=== PATIENT | female | born 1950 | race Caucasian/White ===

== ENCOUNTER → 2023-11-23 08:14 | Outpatient (REF) | payer MEDICARE, SELFPAY ==
[2023-11-23 09:09] LABS: % Basophils 0.9 % (0-2); % Eosinophils 4.1 % (0-6); % Immature Granulocytes 0.6 % (0-0.5); % Lymphocytes 28.4 % (20.5-51.1); % Monocytes 7.2 % (1.7-9.3); % Neutrophils 58.8 % (42.2-75.2); Absolute Basophils 0.1 10^3/uL (0-0.2); Absolute Eosinophils 0.4 10^3/uL (0-0.7); Absolute Immature Granulocytes 0.1 10^3/uL (0-0.05); Absolute Lymphocytes 2.5 10^3/uL (1.2-3.4); Absolute Monocytes 0.6 10^3/uL (0.1-0.6); Absolute Neutrophils 5.1 10^3/uL (1.4-6.5); Hematocrit 39.4 % (37.0-47.0); Hemoglobin 13.5 g/dL (12.0-16.0); Mean Corp Hgb Conc. 34.3 g/dL (33.0-37.0); Mean Corpuscular Hgb 30.7 pg (27.0-31.0); Mean Corpuscular Volume 89.5 fL (81.0-99.0); Mean Platelet Volume 9.4 fL (7.4-10.4); Nucleated Red Blood Cells % 0 %; Platelet Count 267 10^3/uL (130-400); Red Cell Dist. Width 14.3 % (11.5-14.5); White Blood Cell Count 8.6 10^3/uL (4.8-10.8)
[2023-11-23 09:29] LABS: Glycohemoglobin (HgbA1c) 5.8 % (4.0-5.6)
[2023-11-23 10:15] LABS: ALT (SGPT) 25 U/L (0-35); AST (SGOT) 42 U/L (14-36); Albumin 4.3 g/dl (3.5-5.0); Alkaline Phosphatase 44 U/L (38-126); Blood Urea Nitrogen 15 mg/dl (7-17); Calcium 9.4 mg/dl (8.4-10.2); Carbon Dioxide 23 mmol/L (22-30); Chloride 106 mmol/L (98-107); Glucose 84 mg/dl (70-99); HDL Cholesterol 60 mg/dl; LDL Cholesterol, Calculated 69 mg/dl; Potassium 3.8 mmol/L (3.5-5.1); Sodium 137 mmol/L (135-145); Total Bilirubin 0.8 mg/dl (0.2-1.3); Total Cholesterol 152 mg/dl (50-199); Triglyceride 118 mg/dl (10-149); Very Low Density Lipoprotein 23 mg/dl (0-30); eGFR > 60.00
== END ==
LOC: REG 08:14
PROVIDERS: ATTENDING PHYSICIAN Internal Medicine
DX: I10 Essential (primary) hypertension (principal); E11.65 Type 2 diabetes mellitus with hyperglycemia
CPT/HCPCS: 36415; 80053; 80061; 83036; 85025

== ENCOUNTER → 2024-03-16 06:43 | Outpatient (REF) | payer MEDICARE, SELFPAY ==
[2024-03-16 08:55] LABS: ALT (SGPT) 26 U/L (0-35); AST (SGOT) 34 U/L (14-36); Albumin 4.1 g/dl (3.5-5.0); Alkaline Phosphatase 57 U/L (38-126); Blood Urea Nitrogen 15 mg/dl (7-17); Carbon Dioxide 29 mmol/L (22-30); Chloride 103 mmol/L (98-107); Glucose 86 mg/dl (70-99); HDL Cholesterol 58 mg/dl; LDL Cholesterol, Calculated 81 mg/dl; Potassium 4.2 mmol/L (3.5-5.1); Sodium 140 mmol/L (135-145); Total Bilirubin 0.8 mg/dl (0.2-1.3); Total Cholesterol 161 mg/dl (50-199); Total Protein 6.7 g/dl (6.3-8.2); Triglyceride 111 mg/dl (10-149); Very Low Density Lipoprotein 22 mg/dl (0-30); eGFR > 60.00
[2024-03-16 09:47] LABS: Glycohemoglobin (HgbA1c) 5.9 % (4.0-5.6)
== END ==
LOC: REG 06:43
PROVIDERS: ATTENDING PHYSICIAN Internal Medicine; REFERRING PHYSICIAN Internal Medicine
DX: E78.00 Pure hypercholesterolemia, unspecified (principal); I10 Essential (primary) hypertension
CPT/HCPCS: 36415; 80053; 80061; 83036

== ENCOUNTER → 2024-05-21 17:20 | Outpatient (REF) | payer MEDICARE, SELFPAY | LOC: RAD 17:20 | PROVIDERS: ATTENDING PHYSICIAN Internal Medicine | DX: J18.9 Pneumonia, unspecified organism (principal); R05.1 Acute cough | CPT/HCPCS: 71046 ==

== ENCOUNTER → 2024-06-21 08:10 | Outpatient (REF) | payer MEDICARE, SELFPAY | LOC: RAD 08:10 | PROVIDERS: ATTENDING PHYSICIAN Nurse Practitioner Adult Health; FAMILY PHYSICIAN Internal Medicine | DX: J18.9 Pneumonia, unspecified organism (principal) | CPT/HCPCS: 71046 ==

== ENCOUNTER → 2024-07-09 10:56 | Outpatient (REF) | payer MEDICARE, SELFPAY | LOC: RAD 10:56 | PROVIDERS: ATTENDING PHYSICIAN Nurse Practitioner Family; FAMILY PHYSICIAN Internal Medicine | DX: R06.02 Shortness of breath (principal) | CPT/HCPCS: 71046 ==

== ENCOUNTER → 2024-07-11 06:48 | Outpatient (REF) | payer MEDICARE, SELFPAY ==
[2024-07-11 08:17] LABS: ALT (SGPT) 37 U/L (0-35); AST (SGOT) 39 U/L (14-36); Albumin 4.3 g/dl (3.5-5.0); Alkaline Phosphatase 59 U/L (38-126); Blood Urea Nitrogen 15 mg/dl (7-17); Calcium 9.6 mg/dl (8.4-10.2); Carbon Dioxide 26 mmol/L (22-30); Chloride 104 mmol/L (98-107); Glucose 96 mg/dl (70-99); Potassium 3.9 mmol/L (3.5-5.1); Sodium 144 mmol/L (135-145); Total Bilirubin 0.9 mg/dl (0.2-1.3); Total Protein 6.9 g/dl (6.3-8.2); eGFR > 60.00
[2024-07-11 08:47] LABS: TSH Reflex To Free T4 1.56 uIU/ml (0.47-4.68)
[2024-07-11 09:25] LABS: Glycohemoglobin (HgbA1c) 5.6 % (4.0-5.6)
[2024-07-11 12:11] LABS: Microalbumin, Random Urine 3.4 mg/dl (0.6-1.7); Microalbumin/creatinine Ratio 74.4 mg/g
== END ==
LOC: REG 06:48
PROVIDERS: ATTENDING PHYSICIAN Internal Medicine
DX: E11.65 Type 2 diabetes mellitus with hyperglycemia (principal)
CPT/HCPCS: 36415; 80053; 82043; 82570; 83036; 84443

== ENCOUNTER → 2024-07-18 13:15 | Outpatient (REF) | payer MEDICARE, SELFPAY | LOC: RAD 13:15 | PROVIDERS: ATTENDING PHYSICIAN Nurse Practitioner Family; FAMILY PHYSICIAN Internal Medicine; OTHER PHYSICIAN Internal Medicine Cardiovascular Disease; OTHER PHYSICIAN Internal Medicine Critical Care Medicine | DX: J18.9 Pneumonia, unspecified organism (principal) | CPT/HCPCS: 71260; Q9967 ==

== ENCOUNTER → 2024-08-01 15:57 | Outpatient (REF) | payer MEDICARE, SELFPAY | LOC: RCS 15:57 | PROVIDERS: ATTENDING PHYSICIAN Internal Medicine Cardiovascular Disease; FAMILY PHYSICIAN Internal Medicine | DX: R01.1 Cardiac murmur, unspecified (principal) | CPT/HCPCS: 93306 ==

== ENCOUNTER → 2024-08-02 08:09 | Outpatient (REF) | payer MEDICARE, SELFPAY | LOC: RST 08:09 | PROVIDERS: ATTENDING PHYSICIAN Nurse Practitioner Adult Health; FAMILY PHYSICIAN Internal Medicine; REFERRING PHYSICIAN Family Medicine | DX: R05.2 Subacute cough (principal); R13.10 Dysphagia, unspecified | CPT/HCPCS: 74230; 92611 ==

== ENCOUNTER → 2024-09-12 13:11 | Outpatient (REF) | payer MEDICARE, SELFPAY | LOC: WDC 13:11 | PROVIDERS: ATTENDING PHYSICIAN Obstetrics & Gynecology; FAMILY PHYSICIAN Internal Medicine | DX: Z13.820 Encounter for screening for osteoporosis (principal); Z12.31 Encounter for screening mammogram for malignant neoplasm of breast; Z78.0 Asymptomatic menopausal state; M85.88 Other specified disorders of bone density and structure, other site | CPT/HCPCS: 77063; 77067; 77080 ==

== ENCOUNTER → 2024-11-14 09:03 | Outpatient (REF) | payer MEDICARE, SELFPAY ==
[2024-11-14 10:06] LABS: Glycohemoglobin (HgbA1c) 5.4 % (4.0-5.6)
[2024-11-14 10:20] LABS: ALT (SGPT) 27 U/L (0-35); AST (SGOT) 37 U/L (14-36); Albumin 4.4 g/dl (3.5-5.0); Alkaline Phosphatase 69 U/L (38-126); Blood Urea Nitrogen 13 mg/dl (7-17); Calcium 9.6 mg/dl (8.4-10.2); Carbon Dioxide 30 mmol/L (22-30); Chloride 102 mmol/L (98-107); Glucose 89 mg/dl (70-99); HDL Cholesterol 57 mg/dl; Potassium 4.1 mmol/L (3.5-5.1); Sodium 140 mmol/L (135-145); Total Cholesterol 145 mg/dl (50-199); eGFR > 60.00
[2024-11-14 11:14] LABS: LDL Cholesterol, Calculated 70 mg/dl; Triglyceride 94 mg/dl (10-149); Very Low Density Lipoprotein 18 mg/dl (0-30)
== END ==
LOC: REG 09:03
PROVIDERS: ATTENDING PHYSICIAN Internal Medicine
DX: E11.9 Type 2 diabetes mellitus without complications (principal); I10 Essential (primary) hypertension; E78.00 Pure hypercholesterolemia, unspecified
CPT/HCPCS: 36415; 80053; 80061; 83036

== ENCOUNTER → 2024-12-14 14:14 | Outpatient (REF) | payer MEDICARE, SELFPAY | LOC: RAD 14:14 | PROVIDERS: ATTENDING PHYSICIAN Internal Medicine Critical Care Medicine; FAMILY PHYSICIAN Internal Medicine | DX: R93.89 Abnormal findings on diagnostic imaging of other specified body structures (principal); R91.8 Other nonspecific abnormal finding of lung field | CPT/HCPCS: 71250 ==

== ENCOUNTER → 2025-03-01 11:27 | Outpatient (REF) | payer MEDICARE, SELFPAY ==
[2025-03-01 12:01] LABS: % Basophils 0.5 % (0-2); % Eosinophils 1.8 % (0-6); % Immature Granulocytes 0.5 % (0-0.5); % Lymphocytes 11.7 % (20.5-51.1); % Monocytes 7.2 % (1.7-9.3); % Neutrophils 78.3 % (42.2-75.2); Absolute Basophils 0.1 10^3/uL (0-0.2); Absolute Eosinophils 0.2 10^3/uL (0-0.7); Absolute Immature Granulocytes 0.1 10^3/uL (0-0.05); Absolute Lymphocytes 1.4 10^3/uL (1.2-3.4); Absolute Monocytes 0.9 10^3/uL (0.1-0.6); Absolute Neutrophils 9.4 10^3/uL (1.4-6.5); Hematocrit 42.5 % (37.0-47.0); Hemoglobin 14.4 g/dL (12.0-16.0); Mean Corp Hgb Conc. 33.9 g/dL (33.0-37.0); Mean Corpuscular Hgb 30.4 pg (27.0-31.0); Mean Corpuscular Volume 89.7 fL (81.0-99.0); Mean Platelet Volume 9.2 fL (7.4-10.4); Nucleated Red Blood Cells % 0 %; Platelet Count 243 10^3/uL (130-400); Red Blood Cell Count 4.74 10^6/uL (4.20-5.40); Red Cell Dist. Width 14.6 % (11.5-14.5); White Blood Cell Count 12.1 10^3/uL (4.8-10.8)
[2025-03-01 12:18] LABS: Blood Urea Nitrogen 11 mg/dl (7-17)
== END ==
LOC: RAD 11:27
PROVIDERS: ATTENDING PHYSICIAN Family Medicine
DX: R05.3 Chronic cough (principal); R04.2 Hemoptysis; Z01.812 Encounter for preprocedural laboratory examination
CPT/HCPCS: 36415; 71260; 82565; 84520; 85025; Q9967

== ENCOUNTER → 2025-03-13 08:35 | Outpatient (REF) | payer MEDICARE, SELFPAY ==
[2025-03-13 10:00] LABS: Glycohemoglobin (HgbA1c) 5.5 % (4.0-5.6)
[2025-03-13 10:52] LABS: ALT (SGPT) 27 U/L (0-35); AST (SGOT) 33 U/L (14-36); Albumin 4.2 g/dl (3.5-5.0); Alkaline Phosphatase 55 U/L (38-126); Blood Urea Nitrogen 13 mg/dl (7-17); Calcium 9.5 mg/dl (8.4-10.2); Carbon Dioxide 25 mmol/L (22-30); Chloride 107 mmol/L (98-107); Glucose 85 mg/dl (70-99); HDL Cholesterol 58 mg/dl; LDL Cholesterol, Calculated 73 mg/dl; Potassium 4.2 mmol/L (3.5-5.1); Sodium 141 mmol/L (135-145); Total Bilirubin 0.9 mg/dl (0.2-1.3); Total Cholesterol 153 mg/dl (50-199); Total Protein 6.8 g/dl (6.3-8.2); Triglyceride 111 mg/dl (10-149); Very Low Density Lipoprotein 22 mg/dl (0-30); eGFR > 60.00
== END ==
LOC: REG 08:35
PROVIDERS: ATTENDING PHYSICIAN Internal Medicine
DX: E11.9 Type 2 diabetes mellitus without complications (principal); I10 Essential (primary) hypertension; E78.00 Pure hypercholesterolemia, unspecified
CPT/HCPCS: 36415; 80053; 80061; 83036

== ENCOUNTER → 2025-04-22 14:37 | Outpatient (REF) | payer MEDICARE, SELFPAY | LOC: HWRAD 14:37 | PROVIDERS: ATTENDING PHYSICIAN Internal Medicine; REFERRING PHYSICIAN Internal Medicine Critical Care Medicine | DX: I50.32 Chronic diastolic (congestive) heart failure (principal); R93.89 Abnormal findings on diagnostic imaging of other specified body structures | CPT/HCPCS: 71250 ==

== ENCOUNTER → 2025-08-26 14:47 | Outpatient (REF) | payer MEDICARE, SELFPAY | LOC: HWRCS 14:47 | PROVIDERS: ATTENDING PHYSICIAN Internal Medicine Cardiovascular Disease; FAMILY PHYSICIAN Internal Medicine | DX: I34.0 Nonrheumatic mitral (valve) insufficiency (principal) | CPT/HCPCS: 93306 ==

== ENCOUNTER → 2025-10-01 13:10 | Outpatient (REF) | payer OTHER, MEDICARE, SELFPAY ==
[2025-10-01 13:17] LABS: Hematocrit 26.4 % (37.0-47.0); Hemoglobin 8.9 g/dL (12.0-16.0); Mean Corp Hgb Conc. 33.7 g/dL (33.0-37.0); Mean Corpuscular Volume 89.2 fL (81.0-99.0); Nucleated Red Blood Cells % 0.2 %; Platelet Count 311 10^3/uL (130-400); Red Cell Dist. Width 15.0 % (11.5-14.5)
[2025-10-01 13:32] LABS: Blood Urea Nitrogen 23 mg/dl (7-17); Calcium 8.3 mg/dl (8.4-10.2); Carbon Dioxide 24 mmol/L (22-30); Chloride 99 mmol/L (98-107); Glucose 98 mg/dl (70-99); Potassium 4.1 mmol/L (3.5-5.1); Sodium 130 mmol/L (135-145); eGFR > 60.00
== END ==
LOC: OLABP 13:10
PROVIDERS: ATTENDING PHYSICIAN Family Medicine
DX: I50.32 Chronic diastolic (congestive) heart failure (principal); I10 Essential (primary) hypertension; J32.9 Chronic sinusitis, unspecified; E11.9 Type 2 diabetes mellitus without complications; E78.5 Hyperlipidemia, unspecified
CPT/HCPCS: 36415; 80048; 85025

== ENCOUNTER → 2025-10-03 14:42 | Outpatient (REF) | payer MEDICARE, SELFPAY ==
[2025-10-03 15:03] LABS: Hematocrit 30.6 % (37.0-47.0); Hemoglobin 10.2 g/dL (12.0-16.0); Mean Corp Hgb Conc. 33.3 g/dL (33.0-37.0); Mean Corpuscular Volume 89.2 fL (81.0-99.0); Nucleated Red Blood Cells % 0.2 %; Platelet Count 446 10^3/uL (130-400); Red Cell Dist. Width 15.2 % (11.5-14.5)
[2025-10-03 15:12] LABS: Blood Urea Nitrogen 17 mg/dl (7-17); Calcium 8.6 mg/dl (8.4-10.2); Carbon Dioxide 27 mmol/L (22-30); Chloride 99 mmol/L (98-107); Glucose 98 mg/dl (70-99); Potassium 4.2 mmol/L (3.5-5.1); Sodium 132 mmol/L (135-145); eGFR > 60.00
== END ==
LOC: OLAB 14:42
PROVIDERS: ATTENDING PHYSICIAN Family Medicine
DX: J32.9 Chronic sinusitis, unspecified (principal); J45.998 Other asthma; S01.111D Laceration without foreign body of right eyelid and periocular area, subsequent encounter; S32.402D Unspecified fracture of left acetabulum, subsequent encounter for fracture with routine healing; E11.9 Type 2 diabetes mellitus without complications; E78.5 Hyperlipidemia, unspecified; F41.9 Anxiety disorder, unspecified; G47.33 Obstructive sleep apnea (adult) (pediatric); I48.0 Paroxysmal atrial fibrillation
CPT/HCPCS: 80048; 83880; 85025

== ENCOUNTER 2025-10-05 16:41 | Emergency (ER) | payer MEDICARE, SELFPAY ==
[2025-10-05 16:45] VITALS: BP 131/64; BMI 32.3
--- NOTE | 2025-10-05 17:36 | ED.GENMED ---
History of Present Illness
General
Chief Complaint: Musculo-Skeletal Complaint
Source: patient and spouse
Time Seen by Provider: 10/05/25 17:07
History of Present Illness
History of Present Illness:
75-year-old female presents to the emergency room complaining of right elbow pain. Patient had a fall on September 24. She injured her left hip in that fall as well. She was taken to a another hospital where she was diagnosed with a left hip
fracture. This was repaired and she has since been discharged to [facility] for rehab. Unfortunately the right elbow pain has persisted and she had imaging of the right elbow today which was abnormal prompting her referral to the emergency room.
Patient is right-hand dominant. She has some pain with flexion extension but more significant pain with pronation and supination.
Past History
Past History
ED Past Medical History: Asthma, HTN, Hypercholesterolemia and Psychiatric
ED Past Surgical History: Gynecological
Social History
Tobacco: Non-smoker
Phy Exam
Physical Exam
Physical Exam:
General: Awake alert no distress
Head: Ecchymosis from fall which is chronic. Dressing over right eyebrow.
Lungs: Clear bilateral
Extremities: Swelling noted about the right elbow. There is tenderness palpation of the radial head. No tenderness over the olecranon. Patient is able to flex and extend with some discomfort however supination is limited by pain. Radial pulses
intact. Sensation intact.
Course
Orders/Labs/Results
Orders:
Orders
10/05/25 16:54
CR Elbow - Right Min 3 Views Urgent
Comment:
Reason For Exam: injury, mobile xray read as radial head fx
10/05/25 17:35
Splints/Slings/Crut- Treatment ONCE
Sling to: Right Arm
Location: Right
Type of Splint: Long Arm
Vital Signs
Initial and Last Documented VS:
Initial Vital Signs
Temp Pulse Resp BP Pulse Ox
98.8 F 96 16 131/64 97
10/05/25 16:45 10/05/25 16:45 10/05/25 16:45 10/05/25 16:45 10/05/25 16:45
Last Documented Vital Signs
Temp Pulse Resp BP Pulse Ox
98.8 F 96 16 131/64 97
10/05/25 16:45 10/05/25 16:45 10/05/25 16:45 10/05/25 16:45 10/05/25 17:41
MDM/Problems Addressed
Differential Diagnosis Includes:
Radial head fracture, contusion
MDM/Problems Addressed:
Patient has a radial head fracture which obviously happened with her original fall. Will place her in a sling. Follow-up with orthopedics.
*Radiology
Radiology exam reviewed: preliminary read by ED provider (Fracture of the radial head which is minimally displaced)
*Pulse Oximetry
SaO2: 97
Oxygen Mode of Delivery: Room air
Patient hypoxic: no
*Critical Care Note
Total Time (30-74mins, 75-104mins- exclusive of procedures): Not Applicable
ED Attending Note
-
Portions of this chart may have been created with voice recognition software.� Occasional wrong word or��sound alike� substitutions may have occurred due to the inherent limitations of voice recognition software.
Discharge Plan
Departure
Patient Disposition: Usp/SNF
Date of Disposition: 10/05/25
Time of Disposition: 17:36
Condition: Good
Discharge Problem:
Fracture of radial head, right, closed
Instructions: Elbow Fracture, Adult ED
Prescriptions:
No Action
fexofenadine [Lauren] 180 MG tablet
180 mg PO PRN PRN (Reason: allergies)
calcium carbonate [Calcium 600] 600 MG tablet
600 mg PO DAILY
simvastatin 20 MG tablet
10 mg PO QPM
escitalopram oxalate 10 MG tablet
10 mg PO DAILY
rv-cgc-DR-Bf-Tz-rrtmwsj-lutein 1 EACH tablet
1 ea PO DAILY
fluticasone propion-salmeterol [Advair HFA] 1 PUFF HFA aerosol inhaler
2 puff inhalation R BIDPRN PRN (Reason: sob)
diltiazem HCl 240 MG capsule,extended release 24 hr
240 mg PO BID
metformin 750 MG tablet extended release 24 hr
750 mg PO BID
bupropion HCl 150 MG tablet extended release 24 hr
150 mg PO DAILY
coenzyme Q10 [Co Q-10] 200 MG capsule
200 mg PO DAILY
glucosamine burton 2KCl-chondroit 1 EACH capsule
1 ea PO DAILY
albuterol sulfate [Proventil HFA] 90 MCG/PUFF HFA aerosol inhaler
2 puff inhalation Q4HPRN PRN (Reason: SOB or wheezing)
doxycycline hyclate 100 MG capsule
100 mg PO Q12 Qty: 20 0RF
amoxicillin-pot clavulanate 1 TABLET tablet
1 tab PO Q12 Qty: 20 0RF
tramadol 50 MG tablet
50 mg PO Q6HPRN PRN (Reason: Severe pain ) Qty: 20 0RF
bisoprolol fumarate 5 MG tablet
5 mg PO BID Qty: 1 0RF
Rx Instructions:
You dose has increased to 5mg twice daily.
rivaroxaban [Xarelto] 20 MG tablet
20 mg PO QPM Qty: 0 0RF
Rx Instructions:
Ok to resume as of Tuesday06/04/17. Please hold xarelto until then.
Referrals:
Tona Guadarrama DO [Family Provider, General]
Jatin Rodriguez MD [Active, Orthopedics]
Activity Restrictions/Additional Instructions:
Call either the surgeon who fixed your hip or Dr Rodriguez (our orthopedic surgeon who is [employer]) for an appointment about your elbow.
Interventions
Interventions:
*General Assessment Last Done: 10/05/25 16:50
*Neglect/Abuse Screening Last Done: 10/05/25 16:45
[facility] Risk Assessment Tool Last Done: 10/05/25 17:53
*Risk Screen - Suicide (C-SSRS) Last Done: 10/05/25 16:45
*Nursing Disposition Last Done: 10/05/25 18:46
ED-Musculoskeletal Assessment Last Done: 10/05/25 16:50
Discharge Date and Time
Discharge Date/Time: 10/05/25 18:47
Print Language: [place]
== END 2025-10-05 18:47 ==
LOC: EMR 16:41
PROVIDERS: EMERGENCY PHYSICIAN Emergency Medicine; FAMILY PHYSICIAN Family Medicine
DX: S52.121A Displaced fracture of head of right radius, initial encounter for closed fracture (principal); W19.XXXA Unspecified fall, initial encounter; I10 Essential (primary) hypertension; J45.909 Unspecified asthma, uncomplicated; E78.00 Pure hypercholesterolemia, unspecified
CPT/HCPCS: 99283; 73080

== ENCOUNTER → 2025-10-08 10:33 | Outpatient (REF) | payer MEDICARE, SELFPAY ==
[2025-10-08 11:26] LABS: Blood Urea Nitrogen 12 mg/dl (7-17); Calcium 8.1 mg/dl (8.4-10.2); Carbon Dioxide 29 mmol/L (22-30); Chloride 103 mmol/L (98-107); Glucose 86 mg/dl (70-99); Potassium 4.0 mmol/L (3.5-5.1); Sodium 137 mmol/L (135-145); eGFR > 60.00
== END ==
LOC: OLABP 10:33
PROVIDERS: ATTENDING PHYSICIAN Family Medicine
DX: I50.32 Chronic diastolic (congestive) heart failure (principal); J32.9 Chronic sinusitis, unspecified; J45.998 Other asthma; S01.111D Laceration without foreign body of right eyelid and periocular area, subsequent encounter; S32.402D Unspecified fracture of left acetabulum, subsequent encounter for fracture with routine healing; E11.9 Type 2 diabetes mellitus without complications; E78.5 Hyperlipidemia, unspecified; F41.9 Anxiety disorder, unspecified; G47.33 Obstructive sleep apnea (adult) (pediatric); I10 Essential (primary) hypertension; I48.0 Paroxysmal atrial fibrillation
CPT/HCPCS: 36415; 80048